=== PATIENT | female | born 1980 | race Asian ===

== ENCOUNTER 2020-01-10 21:11 | Emergency (ER) | payer OTHER ==
[~2020-01-10] VITALS: Ht 170.2 cm; Wt 76.7 kg
[2020-01-10 22:39] LABS: PLATELET COUNT 214 K/uL (152-353)
[2020-01-10 22:45] LABS: POTASSIUM 4.1 mmol/L (3.6-5.2)
[2020-01-11 00:50] VITALS: BP 120/84; TEMP 98.7
== END 2020-01-11 00:50 | disposition home or self-care (01) ==
LOC: ED 21:11
PROVIDERS: Emergency Medicine Emergency Medical Services
DX: U07.1 COVID-19 (principal)
CPT/HCPCS: 80053; 81000; 81025; 83690; 85027; 87635; 96360; 96375; 96376; 99284; J1885; Q9963; U0003